=== PATIENT | female | born 1995 ===

== ENCOUNTER 2017-08-27 12:36 | Emergency (ER) | payer OTHER ==
[2017-08-27 13:58] LABS: RBC URINE 10 /hpf (0-3); URINE BACTERIA RARE (<OCC); URINE BILIRUBIN NEGATIVE (NEGATIVE); URINE BLOOD 1+ (NEGATIVE); URINE COLOR Straw (YELLOW); URINE GLUCOSE (UA) NORMAL (Normal); URINE KETONE NEGATIVE (NEGATIVE); URINE LEUKOCYTE ESTERASE 1+ Leu/uL (Negative); URINE PROTEIN NEGATIVE (NEGATIVE); URINE UROBILINOGEN NORMAL mg/dL (0.2-1.0); WBC URINE 4 /hpf (0-5)
[2017-08-27 14:10] LABS: CHLORIDE 97 mmol/L (98-107); SODIUM 133 mmol/L (132-148)
[2017-08-27 14:11] LABS: POTASSIUM 3.9 mmol/L (3.6-5.2)
[2017-08-27 14:13] LABS: ALB/GLOB RATIO 1.1 (1.0-2.1); ALKALINE PHOSPHATASE 54 U/L (38-126); ALT/SGPT 38 U/L (9-52); AST/SGOT 19 U/L (14-36); BASO % 0.4 % (0.0-2.0); BILIRUBIN,TOTAL 0.4 mg/dL (0.2-1.3); BLOOD UREA NITROGEN 10 mg/dL (7-17); CARBON DIOXIDE 23 mmol/L (22-30); EOS # 0.2 K/uL (0.0-0.7); EOS % 1.7 % (0.0-4.0); GFR AFRICAN-AMERICAN > 60; GLUCOSE,RANDOM 73 mg/dL (65-105); HEMATOCRIT 38.8 % (34.0-47.0); LYMPH # 2.5 K/uL (1.0-4.3); LYMPH % 22.2 % (20.0-40.0); MEAN CELL VOLUME 86.8 fL (81.0-99.0); MEAN CORPUSCULAR HEMOGLOBIN 29.3 pg (27.0-31.0); MEAN CORPUSCULAR HGB CONC 33.8 g/dL (33.0-37.0); MEAN PLATELET VOLUME 9.6 fL (7.2-11.7); MONO # 0.9 K/uL (0.0-0.8); MONO % 8.3 % (0.0-10.0); RED CELL DISTRIBUTION WIDTH 13.3 % (11.5-14.5); TOTAL PROTEIN 8.6 g/dL (6.3-8.3); WHITE BLOOD COUNT 11.2 K/uL (4.8-10.8)
[2017-08-27 14:14] LABS: CALCIUM 9.7 mg/dl (8.6-10.4)
--- NOTE | 2017-08-27 14:14 | C.PDOC ---
History Of Present Illness 22 year old female, , 4 weeks , presents to ED for evaluation of lower abdominal pain for the past 3 days. Otherwise, denies fever, chills, n/v/d , or urinary symptoms. Time Seen by Provider: 08/27/17 13:08 Chief Complaint (Nursing): Abdominal Pain History Per: Patient History/Exam Limitations: no limitations Onset/Duration Of Symptoms: Days Current Symptoms Are (Timing): Still Present Radiation Of Pain To:: None Quality Of Discomfort: "Pain" Associated Symptoms: denies: Fever, Chills, Nausea, Vomiting, Diarrhea, Loss Of Appetite, Back Pain Exacerbating Factors: None Alleviating Factors: None Recent travel outside of the [place]: No Additional History Per: Patient Abnormal Vaginal Bleeding: No Past Medical History Reviewed: Historical Data, Nursing Documentation, Vital Signs Vital Signs: Last Vital Signs Temp 97.9 F 08/27/17 14:55 Pulse 98 H 08/27/17 14:55 Resp 18 08/27/17 14:55 BP 111/73 08/27/17 14:55 Pulse Ox 98 08/27/17 14:55 Surgical History: Appendectomy Family History: States: Unknown Family Hx - Social History Hx Alcohol Use: No Hx Substance Use: No - Immunization History Hx Tetanus Toxoid Vaccination: No Hx Influenza Vaccination: No Hx Pneumococcal Vaccination: No Review Of Systems Except As Marked, All Systems Reviewed And Found Negative. Constitutional: Negative for: Fever, Chills Gastrointestinal: Positive for: Abdominal Pain. Negative for: Nausea, Vomiting , Diarrhea Genitourinary: Negative for: Dysuria, Frequency, Hematuria Physical Exam - Physical Exam Additional Physical Exam Comments: Constitutional: No acute distress. Head: Normocephalic. Atraumatic. Eyes: PERRL. ENT: Moist mucous membranes. Neck: Supple. Cardiovascular: Regular rate. Radial pulse 2+ bilaterally. Chest: No tenderness. Respiratory: Clear to auscultation bilaterally. GI: Soft. Nontender. Nondistended. Back: No CVA tenderness. Musculoskeletal: No tenderness or swelling of extremities. Skin: No rash. Neurologic: Alert, no focal deficit. ED Course And Treatment - Laboratory Results Result Diagrams: 08/27/17 13:56 08/27/17 13:56 O2 Sat by Pulse Oximetry: 100 (RA) Pulse Ox Interpretation: Normal Medical Decision Making Medical Decision Making: Plan: * Blood work * Urinalysis * Tranvaginal US * Reassess Transvaginal US shows no IUP, no gestational sac, normal flow to both ovaries. Will discharge home, probable spontaneous but must rule out ectopic. Repeat beta in 48 hours, instructed to return immediately for worsening pain, bleeding, vomiting, lightheadedness, dyspnea. Disposition - Disposition Disposition: HOME/ ROUTINE Disposition Time: 16:23 Condition: STABLE Instructions: Ectopic (ED) Forms: [employer] (Egyptian), Gen Discharge Inst Estonian - Clinical Impression Clinical Impression: Abdominal pain in - Scribe Statement The provider has reviewed the documentation as recorded by the Scribe Terrell Encinas All medical record entries made by the Maria De Jesusibe were at my direction and personally dictated by me. I have reviewed the chart and agree that the record accurately reflects my personal performance of the history, physical exam, medical decision making, and the department course for this patient. I have also personally directed, reviewed, and agree with the discharge instructions and disposition.
[2017-08-27 14:57] VITALS: RESP 18
--- NOTE | 2017-08-27 16:20 | US ---
Indication: Abdominal pain and Comparison: None available. Technique: Real-time transabdominal pelvic ultrasound was performed. In addition a transvaginal pelvic ultrasound was necessary to better depict pelvic anatomy. . Findings: The uterus measures approximately 9.3 x 4.9 x 6.1 cm. Anteverted. Endometrial thickness measures approximately 0.9 cm. No evidence of intrauterine gestational sac. Cervix length measures approximately 3.5 cm. The right ovary measures 2.9 x 2.3 x 3.4 cm and contains 1.8 x 1.5 x 1.9 cm complex appearing cyst. The left ovary measures 2.8 x 2.6 x 2.5 cm and contains 3 mm calcification, nonspecific. Blood flow was demonstrated to both ovaries. Impression: No evidence of intrauterine gestational sac. If indeed the patient is based on serum beta HCG values, the sonographic findings represent either: Very early IUP; embryonic demise; ectopic gestation. Follow-up with serial quantitative serum beta HCG measurements and post OBGYN follow-up as clinically indicated, since ectopic gestation cannot be excluded based only on sonographic findings. 1.9 cm complex right ovarian cyst. Recommend attention on follow-up in order to assess for resolution. Nonspecific 3 mm left ovarian calcification.
[2017-08-27 16:34] VITALS: O2SAT 100
[2017-08-27 16:47] VITALS: BP 105/66; PULSE 65; TEMP 98
== END 2017-08-27 16:47 | disposition home or self-care (01) ==
LOC: C.ER 12:36
DX: O26.891 Other specified pregnancy related conditions, first trimester (principal); R10.30 Lower abdominal pain, unspecified; Z3A.01 Less than 8 weeks gestation of pregnancy

== ENCOUNTER 2018-02-25 17:48 | Emergency (ER) | payer OTHER ==
[2018-02-25 18:00] VITALS: O2SAT 100
[2018-02-25] MEDS ORDERED: Sodium Chloride 0.9% 1,000 ML IV ONE (19:04)
[2018-02-25 19:37] LABS: BASO # 0.1 K/uL (0.0-0.2); BASO % 0.7 % (0.0-2.0); EOS # 0.2 K/uL (0.0-0.7); EOS % 1.9 % (0.0-4.0); HEMOGLOBIN 12.6 g/dL (11.0-16.0); LYMPH # 2.9 K/uL (1.0-4.3); LYMPH % 33.9 % (20.0-40.0); MEAN CELL VOLUME 86.3 fL (81.0-99.0); MEAN CORPUSCULAR HEMOGLOBIN 29.4 pg (27.0-31.0); MEAN PLATELET VOLUME 10.2 fL (7.2-11.7); MONO # 0.9 K/uL (0.0-0.8); MONO % 10.1 % (0.0-10.0); NEUT # 4.6 K/uL (1.8-7.0); NEUT % 53.4 % (50.0-75.0); NRBC % 0.1 % (0.0-2.0); RBC 4.3 Mil/uL (3.80-5.20); RED CELL DISTRIBUTION WIDTH 13.6 % (11.5-14.5); WHITE BLOOD COUNT 8.6 K/uL (4.8-10.8)
[2018-02-25 19:40] LABS: HCG,QUALITATIVE URINE NEGATIVE (NEGATIVE)
[2018-02-25 19:52] LABS: ALB/GLOB RATIO 1.3 (1.0-2.1); ALBUMIN 4.3 g/dL (3.5-5.0); ALT/SGPT 17 U/L (9-52); AST/SGOT 24 U/L (14-36); BLOOD UREA NITROGEN 14 mg/dL (7-17); CALCIUM 9.1 mg/dl (8.6-10.4); GFR AFRICAN-AMERICAN > 60; GFR NON-AFRICAN AMERICAN > 60
[2018-02-25 19:53] LABS: SQUAMOUS EPITHIAL 2 /hpf (0-5); URINE BACTERIA RARE (<OCC); URINE BILIRUBIN NEGATIVE (NEGATIVE); URINE BLOOD 2+ (NEGATIVE); URINE CLARITY Clear (Clear); URINE COLOR Straw (YELLOW); URINE GLUCOSE (UA) NORMAL (Normal); URINE LEUKOCYTE ESTERASE NEG Leu/uL (Negative); URINE PROTEIN NEGATIVE (NEGATIVE); URINE UROBILINOGEN NORMAL mg/dL (0.2-1.0)
[2018-02-25 19:54] LABS: BARBITURATES, UR NEGATIVE (NEGATIVE); BENZODIAZEPINES, UR NEGATIVE (NEGATIVE); OPIATES, UR NEGATIVE (NEGATIVE); PHENCYCLIDINE, UR NEGATIVE (NEGATIVE)
--- NOTE | 2018-02-25 20:07 | C.PDOC ---
History Of Present Illness 22 y/o female presents to the ED complaining of dizziness and a mild headache for the past week. LMP was 02/02/18. Patient has not taken any medications prior to arrival. Denies any associated neck pain/stiffness, extremity weakness, visual changes, fever, or chills. Patient states this is not the worst headache of her life. Time Seen by Provider: 02/25/18 18:56 Chief Complaint (Nursing): Dizziness/Lightheaded History Per: Patient History/Exam Limitations: no limitations Onset/Duration Of Symptoms: Days Current Symptoms Are (Timing): Still Present Past Medical History Reviewed: Historical Data, Nursing Documentation, Vital Signs Vital Signs: Last Vital Signs Temp 98.9 F 02/25/18 17:58 Pulse 66 02/25/18 17:58 Resp 16 02/25/18 17:58 BP 118/74 02/25/18 17:58 Pulse Ox 100 02/25/18 20:09 Surgical History: Appendectomy Family History: States: Unknown Family Hx - Social History Hx Alcohol Use: No Hx Substance Use: No - Immunization History Hx Tetanus Toxoid Vaccination: No Hx Influenza Vaccination: No Hx Pneumococcal Vaccination: No Review Of Systems Except As Marked, All Systems Reviewed And Found Negative. Constitutional: Negative for: Fever, Chills Eyes: Negative for: Vision Change Gastrointestinal: Negative for: Nausea, Vomiting Musculoskeletal: Negative for: Neck Pain Neurological: Positive for: Headache, Dizziness. Negative for: Weakness, Numbness, Incoordination Physical Exam - Physical Exam Appears: Non-toxic, No Acute Distress Skin: Normal Color, Warm, Dry Head: Atraumatic, Normacephalic Eye(s): bilateral: Normal Inspection, PERRL, EOMI Oral Mucosa: Moist Neck: Normal ROM, No Midline Cervical Tenderness, No Paracervical Tenderness, Supple Chest: Symmetrical Cardiovascular: Rhythm Regular, No Murmur Respiratory: Normal Breath Sounds, No Rales, No Rhonchi, No Wheezing Gastrointestinal/Abdominal: Soft, No Tenderness, No Distention Back: Normal Inspection, No CVA Tenderness, No Vertebral Tenderness Extremity: Bilateral: Atraumatic, Normal Color And Temperature, Normal ROM Pulses: Left Radial: Normal, Right Radial: Normal Neurological/Psych: Oriented x3, Normal Speech, Normal Cranial Nerves, Normal Motor, Normal Sensation, No Other (focal deficits) Gait: Steady ED Course And Treatment - Laboratory Results Result Diagrams: 02/25/18 19:34 02/25/18 19:34 Lab Interpretation: Normal (ua neg) Urine POC: Negative O2 Sat by Pulse Oximetry: 100 (RA) Pulse Ox Interpretation: Normal - Radiology CXR: Interpreted by Me CXR Interpretation: Yes: No Acute Disease Reevaluation Time: 20:08 Reassessment Condition: Improved Medical Decision Making Medical Decision Making: Initial Impression: 22 y/o F with dizziness and headache Initial Plan: --EKG --Urine drug screen --CMP --CBC --Urine HCG --Urinalysis --Chest x-ray --IV fluids --Meclizine 25 mg PO --Toradol 30 mg IVP Final Impression: mild dizziness/SERRANO with normal physical and laboratory eval improved with ED tx NOT nor anemic Disposition Doctor Will See Patient In The: Office Counseled Patient/Family Regarding: Studies Performed, Diagnosis, Need For Followup - Disposition Referrals: [facility] [Outside] [facility] [Outside] Disposition: HOME/ ROUTINE Disposition Time: 20:09 Condition: GOOD Additional Instructions: green evaluacion salio NORMAL No esta embarrasada Sigue tylenol 1000 mg cada 6 horas o' Ibuprofeno 600 mg cada 6 horas junior necessario para dolor de krystle Sigue en [facility] Familiar junior necessario. Instructions: Headache, Adult Forms: [facility] (Amharic) Print Language: FIJIAN - POA Present On Arrival: None - Clinical Impression Clinical Impression: Dizziness, Headache - Scribe Statement The provider has reviewed the documentation as recorded by the Scribe (Mahi Polo) Provider Attestation: All medical record entries made by the Scribe were at my direction and personally dictated by me. I have reviewed the chart and agree that the record accurately reflects my personal performance of the history, physical exam, medical decision making, and the department course for this patient. I have also personally directed, reviewed, and agree with the discharge instructions and disposition.
[2018-02-25] MEDS ORDERED: Sodium Chloride 0.9% 1,000 ML ONE (20:24)
[2018-02-25 20:44] VITALS: BP 106/69; PULSE 60; RESP 18; TEMP 98.6
--- NOTE | 2018-02-26 09:34 | RAD ---
HISTORY: SOB COMPARISON: No prior. TECHNIQUE: Chest PA and lateral FINDINGS: LUNGS: No active pulmonary disease. PLEURA: No significant pleural effusion identified. No pneumothorax apparent. CARDIOVASCULAR: Normal. OSSEOUS STRUCTURES: No significant abnormalities. VISUALIZED UPPER ABDOMEN: Normal. OTHER FINDINGS: None. IMPRESSION: No active disease.
== END 2018-02-25 21:08 | disposition home or self-care (01) ==
LOC: C.ER 17:48
DX: R42 Dizziness and giddiness (principal); R51 Headache
CPT/HCPCS: 36415; 71046; 80053; 80324; 80345; 80346; 80349; 80353; 80358; 80361; 81001; 83992; 84703; 85025; 96374; 99285; J1885; J7040

== ENCOUNTER 2018-02-27 19:54 | Emergency (ER) | payer OTHER ==
--- NOTE | 2018-02-27 20:38 | C.PDOC ---
History Of Present Illness 22yo female, presents to ED with complaints of vague pain to her left lower quadrant after lifting up a bucket. 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 Patient was evaluated in this ED 2 days ago with vague headache and dizziness however those symptoms have now resolved. She denies any lower back pain, bowel or bladder dysfunction. She has no other medical complaints. Time Seen by Provider: 02/27/18 20:33 Chief Complaint (Nursing): Abdominal Pain History Per: Patient History/Exam Limitations: no limitations Onset/Duration Of Symptoms: Days Current Symptoms Are (Timing): Still Present Location Of Pain/Discomfort: LLQ Associated Symptoms: denies: Back Pain, Urinary Symptoms Past Medical History Reviewed: Historical Data, Nursing Documentation, Vital Signs Vital Signs: Last Vital Signs Temp 97.8 F 02/27/18 20:52 Pulse 80 02/27/18 20:52 Resp 16 02/27/18 20:52 BP 124/81 02/27/18 20:52 Pulse Ox 97 02/27/18 20:52 - Medical History PMH: No Chronic Diseases Surgical History: Appendectomy Family History: States: Unknown Family Hx - Social History Hx Alcohol Use: No Hx Substance Use: No - Immunization History Hx Tetanus Toxoid Vaccination: No Hx Influenza Vaccination: No Hx Pneumococcal Vaccination: No Review Of Systems Except As Marked, All Systems Reviewed And Found Negative. Constitutional: Negative for: Fever, Chills Gastrointestinal: Positive for: Abdominal Pain Genitourinary: Negative for: Incontinence, Hematuria Musculoskeletal: Negative for: Back Pain Physical Exam - Physical Exam Appears: Non-toxic, No Acute Distress Skin: Warm, Dry Head: Atraumatic, Normacephalic Eye(s): bilateral: Normal Inspection, PERRL Neck: Normal ROM, Supple Chest: Symmetrical Cardiovascular: Rhythm Regular Respiratory: Normal Breath Sounds, No Wheezing Gastrointestinal/Abdominal: Normal Exam, Soft, No Tenderness, No Hernia Back: Normal Inspection, No Vertebral Tenderness, No Paraspinal Tenderness Extremity: Normal ROM, No Deformity Neurological/Psych: Oriented x3 ED Course And Treatment O2 Sat by Pulse Oximetry: 100 (RA) Pulse Ox Interpretation: Normal Medical Decision Making Medical Decision Making: vague abd discofort with minimal exertion no hernia, benign belly w/u 2 days ago neg for preg Disposition Doctor Will See Patient In The: Office Counseled Patient/Family Regarding: Studies Performed, Diagnosis - Disposition Referrals: [facility] [Outside] [facility] [employer] [facility] [Outside] Disposition: HOME/ ROUTINE Disposition Time: 20:38 Condition: GOOD Additional Instructions: cuidado cuando levantando cosas pesadas ramila un purgante en aguilar de estrenemiento. Instructions: Constipation in Adults, Muscle Strain (DC) Forms: [employer] (Maori) Print Language: COLOMBIAN - Clinical Impression Clinical Impression: Abdominal wall pain - Scribe Statement The provider has reviewed the documentation as recorded by the Scribe (Jemima Sal) Provider Attestation: All medical record entries made by the Scribe were at my direction and personally dictated by me. I have reviewed the chart and agree that the record accurately reflects my personal performance of the history, physical exam, medical decision making, and the department course for this patient. I have also personally directed, reviewed, and agree with the discharge instructions and disposition.
[2018-02-27 20:53] VITALS: BP 124/81; PULSE 80; RESP 16; TEMP 97.8
[2018-02-27 21:09] VITALS: O2SAT 100
== END 2018-02-27 20:52 | disposition home or self-care (01) ==
LOC: C.ER 19:54
DX: R10.32 Left lower quadrant pain (principal)

== ENCOUNTER 2018-03-10 16:53 | Emergency (ER) | payer OTHER ==
[2018-03-10 17:00] VITALS: BMI 31.8
[2018-03-10] MEDS ORDERED: Sodium Chloride 0.9% 1,000 ML IV ONE (17:29)
[2018-03-10] MEDS ORDERED: Sodium Chloride 0.9% 1,000 ML ONE (17:49)
[2018-03-10 17:50] LABS: BASO % 0.4 % (0.0-2.0); EOS # 0.2 K/uL (0.0-0.7); HEMOGLOBIN 13.2 g/dL (11.0-16.0); LYMPH # 1.7 K/uL (1.0-4.3); LYMPH % 27.8 % (20.0-40.0); MEAN CELL VOLUME 85.3 fL (81.0-99.0); MEAN CORPUSCULAR HEMOGLOBIN 29.8 pg (27.0-31.0); MEAN PLATELET VOLUME 9.8 fL (7.2-11.7); MONO # 0.8 K/uL (0.0-0.8); MONO % 13.4 % (0.0-10.0); NEUT # 3.4 K/uL (1.8-7.0); NEUT % 55.4 % (50.0-75.0); RBC 4.43 Mil/uL (3.80-5.20); RED CELL DISTRIBUTION WIDTH 13.1 % (11.5-14.5); WHITE BLOOD COUNT 6.1 K/uL (4.8-10.8)
--- NOTE | 2018-03-10 17:56 | C.PDOC ---
History Of Present Illness The patient is a 22 year old female whose PMHx includes POS (diagnosed in [place] and compliant with medicine). Patient's LMP was 02/10 and she is A1. Patient presents to the ED for evaluation of lower pelvic pain and vaginal spotting which began 2 days ago. She also complains of a headache. Patient took an at-home test today, which was positive. She denies fever, chills, cough, shortness of breath nausea, vomiting, diarrhea. Time Seen by Provider: 03/10/18 17:27 Chief Complaint (Nursing): Female Genitourinary History Per: Patient History/Exam Limitations: no limitations Onset/Duration Of Symptoms: Days (2) Current Symptoms Are (Timing): Still Present Pain Scale Rating Of: 6 Quality Of Discomfort: "Pain" Associated Symptoms: denies: Fever, Chills, Nausea, Vomiting Additional History Per: Patient Abnormal Vaginal Bleeding: Yes Last Menstral Period: 02/10/2018 : 3 Para: 1 Miscarriage: 1 ( ) Past Medical History Reviewed: Historical Data, Nursing Documentation, Vital Signs Vital Signs: Last Vital Signs Temp 98.0 F 03/10/18 17:00 Pulse 82 03/10/18 17:00 Resp 20 03/10/18 17:00 BP 125/76 03/10/18 17:00 Pulse Ox 100 03/10/18 18:37 - Medical History PMH: No Chronic Diseases Surgical History: Appendectomy Family History: States: Unknown Family Hx - Social History Hx Alcohol Use: No Hx Substance Use: No - Immunization History Hx Tetanus Toxoid Vaccination: No Hx Influenza Vaccination: No Hx Pneumococcal Vaccination: No Review Of Systems Constitutional: Negative for: Fever, Chills Cardiovascular: Negative for: Chest Pain Respiratory: Negative for: Cough, Shortness of Breath Gastrointestinal: Negative for: Nausea, Vomiting, Diarrhea Genitourinary: Positive for: Vaginal Bleeding, Pelvic Pain (lower ) Neurological: Positive for: Headache Physical Exam - Physical Exam Appears: Non-toxic, No Acute Distress Skin: Normal Color, Warm, Dry Head: Atraumatic, Normacephalic Eye(s): bilateral: Normal Inspection Oral Mucosa: Moist Neck: Supple Chest: Symmetrical, No Deformity, Other (mild breast tenderness on palpation ) Cardiovascular: Rhythm Regular, No Murmur Respiratory: Normal Breath Sounds, No Rales, No Rhonchi, No Wheezing Gastrointestinal/Abdominal: Soft, No Tenderness, No Guarding, No Rebound Extremity: Normal ROM, Capillary Refill (less than 2 seconds ) Neurological/Psych: Oriented x3, Normal Speech, Normal Cognition ED Course And Treatment - Laboratory Results Result Diagrams: 03/10/18 17:43 03/10/18 17:43 O2 Sat by Pulse Oximetry: 100 (on RA ) Pulse Ox Interpretation: Normal Medical Decision Making Medical Decision Making: Impression: 24 year old patient with pelvic pain and vaginal spotting Plan: * bloodwork * urinalysis * transvaginal ultrasound * IV Fluids * reassess and disposition Progress: Bloodwork, urinalysis and transvaginal ultrasound ordered. IV Fluids administered. Patient's urine HCG results are negative. Ultrasound has been canceled. Will not perform a pelvic exam. Disposition - Disposition Referrals: [facility] [Outside] Disposition: HOME/ ROUTINE Disposition Time: 18:36 Condition: STABLE Instructions: Menstruation Forms: [facility] [facility] (Monegasque), Gen Discharge Inst Monegasque - POA Present On Arrival: None - Clinical Impression Clinical Impression: Severe menstrual cramps - Scribe Statement The provider has reviewed the documentation as recorded by the Scribe (Rasheeda Encinas) Provider Attestation: All medical record entries made by the Scribe were at my direction and personally dictated by me. I have reviewed the chart and agree that the record accurately reflects my personal performance of the history, physical exam, medical decision making, and the department course for this patient. I have also personally directed, reviewed, and agree with the discharge instructions and disposition. Physician Patient Turnover Patient Signed Over To: Lio Rice
[2018-03-10 17:58] LABS: HCG,QUALITATIVE URINE NEGATIVE (NEGATIVE)
[2018-03-10 18:04] LABS: SQUAMOUS EPITHIAL 3 /hpf (0-5); URINE BACTERIA RARE (<OCC); URINE BILIRUBIN NEGATIVE (NEGATIVE); URINE BLOOD 3+ (NEGATIVE); URINE CLARITY Hazy (Clear); URINE COLOR Yellow (YELLOW); URINE GLUCOSE (UA) NORMAL (Normal); URINE LEUKOCYTE ESTERASE 1+ Leu/uL (Negative); URINE PROTEIN NEGATIVE (NEGATIVE); URINE UROBILINOGEN NORMAL mg/dL (0.2-1.0)
[2018-03-10 18:26] LABS: ALB/GLOB RATIO 1.3 (1.0-2.1); ALBUMIN 4.4 g/dL (3.5-5.0); ALT/SGPT 44 U/L (9-52); AST/SGOT 30 U/L (14-36); BLOOD UREA NITROGEN 8 mg/dL (7-17); CALCIUM 9.4 mg/dl (8.6-10.4); GFR AFRICAN-AMERICAN > 60; GFR NON-AFRICAN AMERICAN > 60
[2018-03-10 18:56] VITALS: BP 126/73; PULSE 78; RESP 18; TEMP 98; O2SAT 98
== END 2018-03-10 18:56 | disposition home or self-care (01) ==
LOC: C.ER 16:53
DX: N94.6 Dysmenorrhea, unspecified (principal)
CPT/HCPCS: 80053; 81001; 84702; 84703; 85025; 86850; 86900; 99284; J7040

== ENCOUNTER 2018-06-26 13:10 | Emergency (ER) | payer OTHER ==
[2018-06-26 13:10] VITALS: BMI 31.8
[2018-06-26 13:27] VITALS: RESP 18; TEMP 98.4; O2SAT 100
[2018-06-26] MEDS ORDERED: Sodium Chloride 0.9% 1,000 ML IV ONE (13:45)
--- NOTE | 2018-06-26 14:07 | C.PDOC ---
History Of Present Illness 22 y/o female presents to the ED complaining of colicky suprapubic discomfort for 2 weeks. She reports PMHx of ovarian cysts, without surgical intervention. Denies possibility of . Patient also reports urinary frequency. Denies any fever, chills, vomiting, diarrhea, dysuria, hematuria, or incontinence. Time Seen by Provider: 06/26/18 13:38 Chief Complaint (Nursing): Abdominal Pain History Per: Patient History/Exam Limitations: no limitations Onset/Duration Of Symptoms: Days Current Symptoms Are (Timing): Still Present Location Of Pain/Discomfort: Suprapubic Radiation Of Pain To:: None Associated Symptoms: denies: Vomiting, Diarrhea Past Medical History Reviewed: Historical Data, Nursing Documentation, Vital Signs Vital Signs: Last Vital Signs Temp 98.4 F 06/26/18 13:24 Pulse 72 06/26/18 13:24 Resp 18 06/26/18 13:24 BP 114/77 06/26/18 13:24 Pulse Ox 100 06/26/18 14:08 - Medical History Other PMH: Ovarian cyst Surgical History: Appendectomy, Family History: States: Unknown Family Hx - Social History Hx Tobacco Use: No Hx Alcohol Use: No Hx Substance Use: No - Immunization History Hx Tetanus Toxoid Vaccination: No Hx Influenza Vaccination: No Hx Pneumococcal Vaccination: No Review Of Systems Except As Marked, All Systems Reviewed And Found Negative. Constitutional: Negative for: Fever, Chills, Sweats Respiratory: Negative for: Shortness of Breath Gastrointestinal: Positive for: Abdominal Pain. Negative for: Nausea, Vomiting , Diarrhea, Hematochezia Genitourinary: Positive for: Frequency. Negative for: Dysuria, Incontinence, Hematuria, Vaginal Discharge, Vaginal Bleeding Musculoskeletal: Negative for: Back Pain Neurological: Negative for: Weakness, Dizziness Physical Exam - Physical Exam Appears: Non-toxic, No Acute Distress Skin: Normal Color, Warm, Dry Head: Atraumatic, Normacephalic Eye(s): bilateral: Normal Inspection Neck: Normal ROM Chest: Symmetrical Cardiovascular: Rhythm Regular, No Murmur Respiratory: Normal Breath Sounds, No Rales, No Rhonchi, No Wheezing Gastrointestinal/Abdominal: Bowel Sounds (Dull to percussion throughout), Soft, No Tenderness, No Guarding, Other (Obese) Back: No CVA Tenderness, No Vertebral Tenderness Extremity: Bilateral: Atraumatic, Normal Color And Temperature, Normal ROM Neurological/Psych: Oriented x3, Normal Speech Gait: Steady ED Course And Treatment - Laboratory Results Result Diagrams: 06/26/18 14:12 06/26/18 14:12 Lab Interpretation: Normal (ua neg) Urine POC: Negative O2 Sat by Pulse Oximetry: 100 (RA) Pulse Ox Interpretation: Normal - Radiology CXR: Interpreted by Me CXR Interpretation: Yes: No Acute Disease - Other Rad abd x 2 X-Ray: Interpreted by Me (+FOS) Reevaluation Time: 15:32 Reassessment Condition: Improved Medical Decision Making Medical Decision Making: Impression: Suprapubic pain Plan: --Blood work --Urinalysis --Urine preg --Obstructive series x-ray --1 L of IV fluids --Toradol 30 mg IVP Disposition Doctor Will See Patient In The: Office Counseled Patient/Family Regarding: Studies Performed, Diagnosis - Disposition Disposition: HOME/ ROUTINE Disposition Time: 15:33 Condition: GOOD Forms: [facility] (Kiswahili) - Clinical Impression Clinical Impression: Colicky LLQ abdominal pain - Scribe Statement The provider has reviewed the documentation as recorded by the Scribe (Mahi Polo) Provider Attestation: All medical record entries made by the Scribe were at my direction and personally dictated by me. I have reviewed the chart and agree that the record accurately reflects my personal performance of the history, physical exam, medical decision making, and the department course for this patient. I have also personally directed, reviewed, and agree with the discharge instructions and disposition.
[2018-06-26 14:15] LABS: BASO % 0.4 % (0.0-2.0); EOS # 0.2 K/uL (0.0-0.7); HEMOGLOBIN 13.3 g/dL (11.0-16.0); LYMPH % 24.5 % (20.0-40.0); MEAN CELL VOLUME 84.6 fL (81.0-99.0); MEAN CORPUSCULAR HEMOGLOBIN 28.9 pg (27.0-31.0); MEAN CORPUSCULAR HGB CONC 34.1 g/dL (33.0-37.0); MEAN PLATELET VOLUME 9.9 fL (7.2-11.7); MONO # 0.8 K/uL (0.0-0.8); MONO % 9.7 % (0.0-10.0); NEUT # 5.1 K/uL (1.8-7.0); NEUT % 62.4 % (50.0-75.0); RBC 4.62 Mil/uL (3.80-5.20); RED CELL DISTRIBUTION WIDTH 13.2 % (11.5-14.5); WHITE BLOOD COUNT 8.2 K/uL (4.8-10.8)
[2018-06-26 14:34] LABS: HCG,QUALITATIVE URINE NEGATIVE (NEGATIVE)
[2018-06-26 14:36] LABS: ALB/GLOB RATIO 1.3 (1.0-2.1); ALBUMIN 4.3 g/dL (3.5-5.0); ALT/SGPT 25 U/L (9-52); AST/SGOT 20 U/L (14-36); BLOOD UREA NITROGEN 13 mg/dL (7-17); CALCIUM 9.6 mg/dl (8.6-10.4); GFR NON-AFRICAN AMERICAN > 60; LIPASE 87 U/L (23-300)
[2018-06-26 14:55] LABS: SQUAMOUS EPITHIAL 2 /hpf (0-5); URINE BACTERIA RARE (<OCC); URINE BILIRUBIN NEGATIVE (NEGATIVE); URINE BLOOD 2+ (NEGATIVE); URINE CLARITY Clear (Clear); URINE COLOR Straw (YELLOW); URINE GLUCOSE (UA) NORMAL (Normal); URINE LEUKOCYTE ESTERASE 1+ Leu/uL (Negative); URINE PROTEIN NEGATIVE (NEGATIVE); URINE UROBILINOGEN NORMAL mg/dL (0.2-1.0)
[2018-06-26 15:47] VITALS: BP 114/75; PULSE 63
--- NOTE | 2018-06-26 16:23 | RAD ---
Date of service: 06/26/2018 PROCEDURE: Radiographs of the chest and abdomen (obstructive series) HISTORY: abd pain, colicky x 2 weeks COMPARISON: No prior. TECHNIQUE: AP radiograph of the chest, with upright and supine radiographs of the abdomen. FINDINGS: CHEST: Lungs: No acute pulmonary disease appreciated bilaterally. Cardiovascular: Normal size heart. No pulmonary vascular congestion. Pleura: No pleural fluid. No pneumothorax. Other findings: None. ABDOMEN AND PELVIS: Bowel: Unremarkable bowel gas pattern. No evidence of mechanical obstruction. [id number] fecal loading is seen at the ascending through transverse large-bowel segments somewhat. Free air: None. Bones: Unremarkable. Other findings: None. IMPRESSION: Unremarkable radiographs of chest and abdomen. No evidence of mechanical bowel obstruction.
== END 2018-06-26 15:50 | disposition home or self-care (01) ==
LOC: C.ER 13:10
DX: R10.32 Left lower quadrant pain (principal)
CPT/HCPCS: 74022; 80053; 81001; 83690; 84703; 85025; 96361; 96374; 99284; J1885; J7030